=== PATIENT | female | born 2000 | race African-American/Black ===

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

== ENCOUNTER 2020-04-16 16:00 | Emergency (ER) | payer MEDICAID, SELFPAY ==
[2020-04-16 16:27] LABS: #Lymphocytes 1.3 thou/uL (1.20-3.40); #Monocytes 0.5 thou/uL (0.11-0.59); #Neutrophils 8.7 thou/uL (1.40-6.50); %Basophils 0.1 % (0.0-1.0); %Eosinophils 0.4 % (0.0-10.0); %Neutrophils 82.6 % (31.0-61.0); Hemoglobin 12.3 g/dL (12.0-16.0); Mean Corpuscular HGB CONC 32.7 g/dL (32.0-36.0); Mean Corpuscular Hemoglobin 28.2 pg (25.0-35.0); Mean Corpuscular Volume 86.2 fL (78.0-98.0); Mean Platelet Volume 8.9 fL (7.4-10.4); Platelet Count 265 thou/uL (130-400); RBC Distribution Width 15.6 % (11.5-14.5); Red Blood Cell (RBC) Count 4.37 mill/uL (4.00-5.20); White Blood Cell (WBC) Count 10.5 thou/uL (4.8-10.8)
--- NOTE | 2020-04-16 16:51 | ULT ---
EXAM: Pelvic ultrasound HISTORY: Right upper quadrant abdominal pain in a female COMPARISON: None TECHNIQUE: Multiple grayscale and color Doppler images were obtained in a transabdominal and transvag inal pelvic ultrasound. Spectral analysis of the Doppler waveforms of the ovaries were performed. FINDINGS: UTERUS: There is an intrauterine gestational sac. This contains a yolk sac and pole. [place]-rump length: 1.92 cm which estimates gestational age at 8 weeks 3 days. A heart rate is detected at 168 bpm. No evidence of subchorionic hemorrhage. A trace amount of free fluid is seen in the pelvis. RIGHT OVARY: Normal flow without focal mass. 2.5 cm corpus luteum cyst. LEFT OVARY: Normal flow without focal mass. IMPRESSION: Single live intrauterine with estimated age of 8 weeks 3 days.
[2020-04-16] MEDS ORDERED: Ondansetron ODT 4 MG TAB ONE (18:04)
== END 2020-04-16 18:15 | disposition home or self-care (01) ==
LOC: ERS 16:00
DX: O21.9 Vomiting of pregnancy, unspecified (principal); O99.89 Other specified diseases and conditions complicating pregnancy, childbirth and the puerperium; O99.341 Other mental disorders complicating pregnancy, first trimester; F32.9 Major depressive disorder, single episode, unspecified; Z3A.01 Less than 8 weeks gestation of pregnancy
CPT/HCPCS: 36415; 76856; 84702; 85025; 86900; 86901; Q0162

== ENCOUNTER 2020-07-17 09:34 | Outpatient (CLI) | payer OTHER ==
--- NOTE | 2020-07-17 14:41 | ULT ---
OB ULTRASOUND: Date: 07/17/2020 HISTORY: anatomy. FINDINGS: A single live intrauterine gestation is seen with measurements corresponding to an estimated gestatio nal age of 21 weeks and 4 days and MARIA DEL CARMEN at 11/23/2020. The estimated weight measures 395 gm, or 14 oz (39% by Hadlock criteria). Biometry: BPD: 5.37 cm, 22 weeks 3 days HC: 19.56 cm, 21 weeks 6 days AC: 15.14 cm, 20 weeks 3 days FL: 3.64 cm, 21 weeks 4 days heart rate measures 158 beats/minute. Cervical length measures 4.2 cm. Placenta is posteriorly placed without placenta previa. MARIO measures 14.4 cm. Three vessel cord, cord insertion, kidneys, bladder, stomach, four chamber heart, lateral ventr icles, cerebellum, spine, lips/nose, and upper/lower extremities are seen. No definite anomalie s are identified. IMPRESSION: Single, live intrauterine of 21 weeks and 4 days estimated gestational age and MARIA DEL CARMEN at 11/23. POS: [facility]
== END 2020-07-17 09:35 | disposition home or self-care (01) ==
LOC: BICULT 09:34
PROVIDERS: ATTEND Family Medicine
DX: Z34.82 Encounter for supervision of other normal pregnancy, second trimester (principal); Z3A.21 21 weeks gestation of pregnancy
CPT/HCPCS: 76805

== ENCOUNTER 2020-07-24 02:46 | Day surgery (SDC) | payer OTHER ==
[2020-07-24 03:17] VITALS: BMI 26.9
[2020-07-24] MEDS ORDERED: hydrALAZINE 20 MG/ML VIAL SLOW IVP PRN (03:27)
[2020-07-24 04:33] LABS: #Basophils 0.1 thou/uL (0.0-0.2); #Eosinphils 0.1 thou/uL (0.0-0.7); #Lymphocytes 1.8 thou/uL (1.20-3.40); #Monocytes 0.7 thou/uL (0.11-0.59); #Neutrophils 8.6 thou/uL (1.40-6.50); %Basophils 0.5 % (0.0-1.0); %Eosinophils 0.7 % (0.0-10.0); %Lymphocytes 16.3 % (28.0-48.0); %Monocytes 6.3 % (0.0-4.0); %Neutrophils 76.2 % (31.0-61.0); Hemoglobin 10.9 g/dL (12.0-16.0); Mean Corpuscular Hemoglobin 30.3 pg (25.0-35.0); Mean Corpuscular Volume 89.1 fL (78.0-98.0); Mean Platelet Volume 7.9 fL (7.4-10.4); Platelet Count 261 thou/uL (130-400); RBC Distribution Width 12.3 % (11.5-14.5); Red Blood Cell (RBC) Count 3.61 mill/uL (4.00-5.20); White Blood Cell (WBC) Count 11.3 thou/uL (4.8-10.8)
[2020-07-24 04:51] LABS: ALT (SGPT) 8 U/L (8-55); AST (SGOT) 17 U/L (5-34); Albumin 3.6 g/dL (3.5-5.0); Alkaline Phosphatase 100 U/L (40-100); Anion Gap 13 mmol/L (10-20); BUN (Urea Nitrogen) 6 mg/dL (7.0-18.7); Bilirubin, Total Less than 0.2 mg/dL (0.2-1.2); Calc. Creatinine Clearance 150 mL/min (70-130); Calcium 8.6 mg/dL (7.8-10.44); Carbon Dioxide 23 mmol/L (22-29); Chloride 106 mmol/L (98-107); Estimated GFR-MDRD Greater than 90; Globulin 3.4 g/dL (2.4-3.5); Glucose 83 mg/dL (70-105); Potassium 3.9 mmol/L (3.5-5.1); Sodium 138 mmol/L (136-145)
--- NOTE | 2020-07-24 09:08 | SS ---
DATE OF ADMISSION: 07/24/2020 DATE OF DISCHARGE: 07/24/2020 REGULAR PHYSICIAN: Jai Dasilva MD EVALUATING PHYSICIAN: David Dent MD CHIEF COMPLAINT: Abdominal pain. HISTORY OF PRESENT ILLNESS: Ms. Houston is a 20-year-old black G2, P0, AB1 with an estimated date of confinement of 11/26/2020, who presents complaining of diffuse upper abdominal pain that started at 11 a.m. Now that she is here at the hospital, she states that her pain has completely gone. She reports associated nausea at that time that has resolved, but denies vomiting, fever, chills, vaginal bleeding, or ruptured membranes. Her care has been with Dr. Dasilva and has been without reported complications. PAST MEDICAL HISTORY: Includes one miscarriage, not requiring D and C. PAST MEDICAL HISTORY: None. PAST SURGICAL HISTORY: None. CURRENT MEDICATIONS: 1. vitamins. 2. Zofran p.r.n. ALLERGIES: NO KNOWN ALLERGIES. SOCIAL HISTORY: Denies tobacco, alcohol, or drug use. PHYSICAL EXAMINATION: VITAL SIGNS: In triage, her vital signs were stable. She is afebrile. GENERAL: She is pleasant and in no distress. ABDOMEN: Soft and nontender. There is no guarding or rebound. PELVIC: Deferred. heart rate tracing is stable and there are no decelerations. No uterine contractions are noted. LABORATORY DATA: CBC shows a white count of 11.3, hemoglobin and hematocrit 10.9 and 32.2, platelet count is 261,000. Chemistry shows a sodium of 138, potassium of 3.9, a BUN of 6 and a creatinine of 0.59. Glucose is 83, total bilirubin less than 0.2 with an AST of 17, ALT of 18, alkaline phosphatase of 100. ASSESSMENT: 1. A 22 and 5/7th-week intrauterine . 2. Abdominal pain, now resolved, suspect either reflux or gastritis. PLAN: The patient was instructed to use a trial of Pepcid over the counter one p.o. b.i.d. for the next 7 to 10 days. She states that she has a followup appointment with Dr. Dasilva next week. She will return should her symptoms recur. Job ID: [id number]
== END 2020-07-24 05:30 | disposition home or self-care (01) ==
LOC: L&D/OP 02:46
PROVIDERS: ATTEND Family Medicine
DX: O99.891 Other specified diseases and conditions complicating pregnancy (principal); R10.10 Upper abdominal pain, unspecified; R11.0 Nausea; O09.292 Supervision of pregnancy with other poor reproductive or obstetric history, second trimester; Z3A.22 22 weeks gestation of pregnancy
CPT/HCPCS: 36415; 80053; 85025; 99282